=== PATIENT | male | born 1970 | race Caucasian/White ===

== ENCOUNTER 2025-01-29 13:58 | Emergency (ER) | payer MEDICAID, SELFPAY ==
[2025-01-29 14:54] VITALS: BP 147/93; PULSE 68; RESP 18; TEMP 36.9; O2SAT 97; BMI 37.3
--- NOTE | 2025-01-29 15:29 | EDNOTE_ITS ---
ED Dental RME/HPI General Chief complaint: Dental/Oral/Throat Stated complaint: 2 Teeth that are bad Time Seen by Provider: 01/29/25 14:07 Arrival date/time: 01/29/25 13:58 This is a 55-year-old male that comes into the emergency room with complaints of right lower jaw teeth pain. Patient states that he has 2 teeth that need to get filled but has not had insurance to be able to get them filled. Patient states she has had jaw pain as a result. Patient also complains of sinus pressure and sinus pain. Related Data Previous Rx's ?Medication ?Instructions ?Recorded amoxicillin 875 mg-potassium 1 tab PO Q12H #14 tabs clavulanate 125 mg tablet ibuprofen 800 mg tablet 800 mg PO Q6H PRN pain #14 t abs 01/29/25 Allergies Allergy/AdvReac Type Severity Reaction Status Date / Time No Known Drug Allergies Allergy Verified 01/29/25 14:02 Course Orders Category Date Time Status Amoxicillin/Pot Clav 875 [Augmentin 875] Med 01/29/25 15:30 Once 1 tab PO X1 ONE Ibuprofen Tab [Motrin Tab] Med 01/29/25 15:30 Once 800 mg PO X1 ONE Vital Signs Vital signs: Vital Signs Temperature 98.4 F 01/29/25 14:54 Pulse Rate 68 01/29/25 14:54 Respiratory Rate 18 01/29/25 14:54 Blood Pressure 147/93 H 01/29/25 14:54 Pulse Oximetry (%) 97 01/29/25 14:54 Oxygen Delivery Method Room Air 01/29/25 14:54 Dental / Oral MDM Narrative MDM Narrative:: Patient currently working on getting health coverage. Will treat for possible early infection in mouth. Patient also complained of sinus pain sinus pressure it we will treat both. Patient told to follow-up with primary provider in 1 to 2 days. Come back to the emergency room symptoms change or worsen. Patient told to make an appointment with a dentist. Discharge Plan Plan Patient Disposition: HOME (Self Care) Patient condition on transfer: Stable Prescriptions/Referrals Prescriptions/Med Rec: New amoxicillin-pot clavulanate 875-125 mg tablet 1 tab PO Q12H Qty: 14 0RF ibuprofen 800 mg tablet 800 mg PO Q6H PRN (Reason: pain) Qty: 14 0RF Problem List Clinical Impression: Toothache, Dental caries Patient/Caregiver Discharge Instructions Discharge Activity: activity as tolerated Education Materials: ED Dental Pain Additional Instructions: Follow up with primary provider in 1-2 days. Come back to ED if symptoms change or worsen Print Language: Armenian Stand Alone Forms: Sara Award Info., Patient Portal Info Letter PA/SPECIAL EDUCATION RESOURCE ROOM TEACHER Supervising Physician PA/SPECIAL EDUCATION RESOURCE ROOM TEACHER Supervising Physician: aryan
[2025-01-29] MEDS: AMOXICILLIN/POT CLAV 875 TABLET 1 TAB PO (15:37)
[2025-01-29] MEDS: IBUPROFEN TAB 400 MG TABLET 800 MG PO (15:37)
== END 2025-01-29 15:50 | disposition home or self-care (01) ==
PROVIDERS: Emergency Provider Family Medicine
DX: K02.9 Dental caries, unspecified (principal); Z59.71 Insufficient health insurance coverage
CPT/HCPCS: 99282; A9270

== ENCOUNTER 2025-03-18 19:35 | Emergency (ER) | payer MEDICAID, SELFPAY ==
[2025-03-18 19:35] VITALS: BMI 38.7
--- NOTE | 2025-03-18 19:38 | EKG_ITS ---
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
[2025-03-18 19:48] VITALS: BP 160/88; PULSE 62; RESP 16; TEMP 36.9; O2SAT 98
--- NOTE | 2025-03-18 20:24 | XR_ITS ---
Examination: PA chest single view TECHNIQUE: Upright PA chest single view Date and time: March 18, 2025, 2029 hours INDICATIONS: Chest pain beginning 2 hours ago. FINDINGS: Normal heart size Lungs are clear. The osseous structures are intact. IMPRESSION: No active disease
[2025-03-18] MEDS: ASPIRIN 81 MG CHEW 324 MG PO (20:35)
--- NOTE | 2025-03-18 21:22 | PD.EDCHEST ---
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 Limitations: no limitations Related Data Previous Rx's ?Medication ?Instructions ?Recorded amoxicillin 875 mg-potassium 1 tab PO Q12H #14 tabs 01/29/25 clavulanate 125 mg tablet ibuprofen 800 mg tablet 800 mg PO Q6H PRN pain #14 tabs 01/29/25 Allergies Allergy/AdvReac Type Severity Reaction Status Date / Time No Known Drug Allergies Allergy Verified 01/29/25 14:02 Review of Systems Review of Systems Systems Reviewed: All systems reviewed, normal except as documented Constitutional Constitutional: Reports system reviewed and no additional complaints, except as documented, Denies fever(s) and Denies headache(s) ENT Ears, Nose, Mouth, and Throat: Denies disequilibrium and Denies headache(s) Cardiovascular Cardiovascular: Reports system reviewed and no additional complaints, except as documented, Reports as per HPI, Reports chest pain and Reports dyspnea Respiratory Respiratory: Reports system reviewed and no additional complaints, except as documented, Denies cough and Reports dyspnea Gastrointestinal Gastrointestinal: Reports system reviewed and no additional complaints, except as documented, Denies abdominal pain, Denies nausea and Denies vomiting Neurologic Neurologic: Reports system reviewed and no additional complaints, except as documented, Denies confusion, Denies disequilibrium and Denies headache(s) Psychiatric Psychiatric: Denies confusion Past Medical History Social History SMOKING STATUS: Never smoker ED Exam General Limitations: Present no limitations General appearance: Present alert and in distress Head Head exam: Present atraumatic Eye Eye exam: Present normal appearance, PERRL and EOMI ENT ENT exam: Present normal exam, normal oropharynx and mucous membranes moist Neck Neck exam: Present normal inspection, full ROM and trachea midline Chest Chest inspection: Present normal inspection and symmetric chest wall rise Respiratory Respiratory exam: Present normal lung sounds bilaterally Cardiovascular Cardiovascular exam: Present regular rate, normal rhythm and normal heart sounds Abdominal Exam Abdominal exam: Present soft and normal bowel sounds Extremities Exam Extremities exam: Present normal inspection and full ROM Back Exam Back exam: Present normal inspection and full ROM Neurological Exam Neurological exam: Present alert, oriented X3 and CN II-XII intact Psychiatric Psychiatric exam: Present normal affect and normal mood Skin Skin exam: Present warm, dry, intact and normal color Course Quality Measures none Orders Category Date Time Status EKG (ED ONLY) *Do not use* NOW Care 03/18/25 19:38 Completed EKG (ED Only) Stat Exams 03/18/25 19:38 Draft XR chest 1V portable Stat Exams 03/18/25 20:24 Completed B-Type Natriuretic Peptide Stat Lab 03/18/25 22:02 Completed CBC Stat Lab 03/18/25 22:02 Completed Comprehensive Metabolic Panel Stat Lab 03/18/25 22:02 Completed Drug Screen,Urine Stat Lab 03/18/25 20:34 Completed Magnesium Stat Lab 03/18/25 22:02 Completed Partial Thromboplastin Time Stat Lab 03/18/25 22:02 Completed Prothrombin Time with INR Stat Lab 03/18/25 22:02 Completed Troponin I Stat Lab 03/18/25 22:02 Completed Aspirin Chew Med 03/18/25 20:24 Discontinued 324 mg PO X1 ONE Vital Signs Vital signs: Vital Signs Temperature 98.5 F 03/18/25 19:48 Pulse Rate 62 03/18/25 19:48 Respiratory Rate 16 03/18/25 19:48 Blood Pressure 160/88 H 03/18/25 19:48 Pulse Oximetry (%) 98 03/18/25 19:48 Oxygen Delivery Method Room Air 03/18/25 19:48 O2 at 98% on RA and WNLs Chest Pain MDM Narrative MDM Narrative:: 55M with history of meth use presents to ED with hours of CP and SOB. Physical exam reveals clear lungs and normal WOB. Patient is afebrile, alert, but appears to be in pain and is somewhat sweaty. EKG is sinus dennise of 59 with 1st degree heart block. Patient eloped after taking aspirin. Patient data External records reviewed:: [facility] previous records Clinical information provided by:: patient Social determinants that could affect healthcare access:: substance use Patient has the following chronic illnesses:: drug use How is presenting disease/condition affected by chronic disease/condition?: exacerbated by Evaluation data The following diagnostics were reviewed and interpreted by me:: lab results, radiology exam(s) and EKG tracing(s) Lab and/or radiology exams considered but not ordered:: ordered Interpretation Summary: above Medications / Prescriptions Medications or Prescriptions considered but not ordered:: ordered Medication administrations:: Medication Administration History Discontinued Medications Aspirin (Aspirin 81 Mg Chew) 324 mg PO X1 ONE Stop: 03/18/25 20:25 Last Admin: 03/18/25 20:35 Dose: 324 mg Documented By: CB above Consultations Consultation(s) initiated? (list below): No Diagnosis Chest Pain Differential Diagnosis: fracture of rib, pneumothorax, stable angina, unstable angina pectoris, atypical chest pain, st elevation myocardial infarction, costochondritis, chest pain and biliary colic Most likely diagnosis given after review of the tests above:: chest pain Admission Indicated Admission indicated?: not indicated Admission Request Was there a request for admission?: No Disposition Plan Disposition Plan: other (specify) (eloped) Discharge Plan Plan Patient Disposition: Elopement Prescriptions/Referrals Prescriptions/Med Rec: No Action amoxicillin-pot clavulanate 875-125 mg tablet 1 tab PO Q12H Qty: 14 0RF ibuprofen 800 mg tablet 800 mg PO Q6H PRN (Reason: pain) Qty: 14 0RF Referrals: Yelena Hammer PA-C [Primary Care Provider] - In 1 week Problem List Clinical Impression: Chest pain Patient/Caregiver Discharge Instructions Print Language: Greenlandic FLOR/PAULINE Supervising Physician FLOR/PAULINE Supervising Physician: Dr. Herrera
[2025-03-18 22:14] LABS: Basophils # (Auto) 0.0 Thou/mm3 (0.0-0.2); Basophils % (Auto) 1 % (0-2.5); Eosinophils # (Auto) 0.2 Thou/mm3 (0.0-0.5); Eosinophils % (Auto) 2 % (0-10); Hematocrit 43.7 % (41.0-53.0); Hemoglobin 14.9 g/dL (13.5-16.0); Immature Granulocytes Auto 0.02 Thou/mm3 (0.00-0.00); Lymphocytes # (Auto) 2.5 Thou/mm3 (1.0-4.8); Lymphocytes % (Auto) 37 % (10-50); Mean Corpuscular HGB Conc 34.1 g/dl (31.0-37.0); Mean Corpuscular Hemoglobin 29.9 pg (25.0-35.0); Mean Corpuscular Volume 88 fL (80-100); Monocytes # (Auto) 0.6 Thou/mm3 (0.0-0.8); Monocytes % (Auto) 9 % (0-12); Neutrophils # (Auto) 3.4 Thou/mm3 (1.8-7.7); Neutrophils % (Auto) 51 % (37-80); Nucleated Red Blood Cell # 0.00 Thou/mm3 (0.00-0.00); Nucleated Red Blood Cell % 0 /100 WBC (0); Platelet Count 195 Thou/mm3 (140-440); RDW Standard Deviation 38.2 fL (35.1-43.9); Red Blood Count 4.98 Miln/mm3 (4.50-5.90); White Blood Count 6.6 Thou/mm3 (3.8-10.6)
[2025-03-18 22:33] LABS: B-Type Natriuretic Peptide 36 pg/mL (0-100); INR 1.1 (0.9-1.3); Partial Thromboplastin Time 27.1 Seconds (22.0-36.0); Prothrombin Time 11.9 Seconds (9.0-12.2)
[2025-03-18 22:35] LABS: Alanine Aminotransferase 13 U/L (10-49); Albumin, Serum 4.6 gm/dL (3.5-5.0); Albumin/Globulin Ratio 1.9 (1.2-2.2); Alkaline Phosphatase 45 U/L (46-116); Anion Gap 9 (7-16); Aspartate Amino Transferase 13 U/L (0-34); BUN/Creatinine Ratio 10 Ratio (12-20); Bilirubin,Total 1.3 mg/dL (0.3-1.2); Blood Urea Nitrogen 9 mg/dL (9-23); Calcium 9.7 mg/dL (8.3-10.6); Calcium (Corrected) 9.7 mg/dL (8.5-10.1); Carbon Dioxide 28.5 mMol/L (20.0-31.0); Chloride 109 mMol/L (98-107); Creatinine (Component) 0.9 mg/dL (0.6-1.3); Estimated Creatinine Clearance 121.7 mL/min (>60); Globulin 2.4 gm/dL (2.3-3.5); Glucose 95 mg/dL (74-106); Magnesium 2.0 mg/dL (1.6-2.6); Osmolality,Calculated 289 (275-295); Potassium 3.7 mMol/L (3.4-5.1); Sodium 146 mMol/L (136-145); Total Protein 7.0 gm/dL (5.7-8.2); Troponin I < 0.020 ng/mL (0.0-0.045); eGFR > 60 See Note
[2025-03-18 23:55] LABS: Amphetamine/Methamp Scrn,U Negative (Negative); Barbiturate Screen,Urine Negative (Negative); Benzodiazepines Screen,Urine Negative (Negative); Benzoylecgonine Screen, Ur Negative (Negative); Fentanyl Screen,Urine Negative (Negative); Opiate Screen,Urine Negative (Negative); THC Screen,Urine Positive (Negative)
--- NOTE | 2025-03-19 01:37 | PC.NURSE ---
called patient in the lobby and outside, no answer received.
--- NOTE | 2025-03-19 02:00 | PC.NURSE ---
CALLED PT IN ER LOBBY AND OUTSIDE OF ER
--- NOTE | 2025-03-19 02:26 | PC.NURSE ---
CALLED PT IN ER LOBBY AND OUTSIDE OF ER AND NO ANSWER
== END 2025-03-19 02:27 | disposition left against medical advice (07) ==
PROVIDERS: Physician Assistant; Emergency Provider Emergency Medicine; PCP Physician Assistant Medical
DX: R07.9 Chest pain, unspecified (principal); I44.0 Atrioventricular block, first degree
CPT/HCPCS: 36415; 71045; 80053; 80307; 83735; 83880; 84484; 85025; 85610; 85730; 93005; 99283; A9270